=== PATIENT | male | born 1990 | race Caucasian/White ===

== ENCOUNTER 2024-06-14 19:34 | Emergency (ER) | payer OTHER ==
[~2024-06-14] VITALS: Ht 170.2 cm; Wt 108.0 kg
[2024-06-14 20:07] VITALS: BP 157/115
== END 2024-06-14 20:05 | disposition home or self-care (01) ==
LOC: ED 19:34
DX: T20.14XA Burn of first degree of nose (septum), initial encounter (principal); T20.10XA Burn of first degree of head, face, and neck, unspecified site, initial encounter; X01.8XXA Other exposure to uncontrolled fire, not in building or structure, initial encounter
CPT/HCPCS: 99283

== ENCOUNTER 2025-05-10 22:33 | Emergency (ER) | payer OTHER ==
[~2025-05-10] VITALS: Ht 170.2 cm; Wt 110.0 kg
[2025-05-10 23:20] VITALS: BP 150/95
== END 2025-05-10 23:21 | disposition home or self-care (01) ==
LOC: ED 22:33
DX: S60.222A Contusion of left hand, initial encounter (principal); I10 Essential (primary) hypertension; Z88.5 Allergy status to narcotic agent; W22.8XXA Striking against or struck by other objects, initial encounter
CPT/HCPCS: 73130; 99283